=== PATIENT | male | born 1985 | race Caucasian/White ===

== ENCOUNTER → 2021-04-15 | Outpatient (CLI) | payer OTHER | END | disposition home or self-care (01) | LOC: LABMAIN 12:07 | PROVIDERS: ATTEND Physician Assistant | DX: U07.1 COVID-19 (principal) | CPT/HCPCS: 87635 ==

== ENCOUNTER 2021-04-17 10:39 | Emergency (ER) | payer OTHER ==
[2021-04-17 10:43] VITALS: RESP 18
[2021-04-17] MEDS: CLINDAMYCIN 150 MG CAP PO STA (11:40)
[2021-04-17] MEDS: dexAMETHasone ORAL SOLUTION 4 MG/ML VIAL PO STA (11:41)
--- NOTE | 2021-04-17 11:43 | ED ---
General Adult HPI - General Source: patient Mode of arrival: ambulatory Limitations: no limitations <Evan Palacio - Last Filed: 04/17/21 11:38> <Missy Fraga - Last Filed: 04/18/21 20:42> - General Chief complaint: ENT Stated complaint: Swollen Uvula Time Seen by Provider: 04/17/21 10:50 - History of Present Illness Initial comments: 36-year-old male with a past medical history of asthma presents to the emergency room for a swollen uvula. Patient started to feel sick a few days ago. He has had a sore throat and cough. Patient states that he woke up today his uvula felt swollen. Patient was able to swallow some Motrin which did help with the swelling as well. The patient tried to call his doctor but they did not see any type of illness because of the current pandemic. Patient is covid negative as of 2 days ago.Patient has no other complaints at this time including shortness of breath, chest pain, abdominal pain, nausea or vomiting, headache, or visual changes. (Evan Palacio) - Related Data Previous Rx's Medication Instructions Recorded Clindamycin [Cleocin] 300 mg PO Q8H 10 Days #60 cap 04/17/21 Allergies Allergy/AdvReac Type Severity Reaction Status Date / Time amoxicillin [From Augmentin] Allergy Swelling Verified 04/17/21 10:40 clavulanic acid Allergy Swelling Verified 04/17/21 10:40 [From Augmentin] Penicillins Allergy Swelling Verified 04/17/21 10:40 Review of Systems ROS Other: All systems not noted in ROS Statement are negative. <Evan Palacio - Last Filed: 04/17/21 11:38> ROS Other: All systems not noted in ROS Statement are negative. <Missy Fraga - Last Filed: 04/18/21 20:42> ROS Statement: Those systems with pertinent positive or pertinent negative responses have been documented in the HPI. Past Medical History Past Medical History: Asthma History of Any Multi-Drug Resistant Organisms: None Reported Past Surgical History: Adenoidectomy Past Psychological History: No Psychological Hx Reported Smoking Status: Current some day smoker Past Alcohol Use History: Occasional Past Drug Use History: None Reported <Evan Palacio - Last Filed: 04/17/21 11:38> General Exam Limitations: no limitations General appearance: alert, in no apparent distress Head exam: Present: atraumatic Eye exam: Present: normal appearance, PERRL, EOMI. Absent: scleral icterus ENT exam: Present: mucous membranes moist. Absent: normal exam, normal oropharynx (Uvula is mildly edematous. There is no peritonsillar abscess. Uvula is midline.) Neck exam: Present: normal inspection, full ROM. Absent: tenderness Respiratory exam: Present: normal lung sounds bilaterally. Absent: respiratory distress, wheezes Cardiovascular Exam: Present: regular rate, normal rhythm, normal heart sounds GI/Abdominal exam: Present: soft, normal bowel sounds. Absent: distended, tenderness <Evan Palacio - Last Filed: 04/17/21 11:38> Course Vital Signs 04/17/21 04/17/21 10:41 12:36 Temperature 97.9 F 98 F Pulse Rate 100 97 Respiratory 18 18 Rate Blood Pressure 148/67 142/70 O2 Sat by Pulse 98 99 Oximetry Medical Decision Making <Evan Palacio - Last Filed: 04/17/21 11:38> <Missy Fraga - Last Filed: 04/18/21 20:42> - Medical Decision Making Vitals are stable. Patient is well-appearing. Patient is a mildly edematous uvula but does not have any difficulty breathing. Able to swallow liquids. Patient was given a dose of Decadron. He is ALLERGIC to amoxicillin and penicillins. Therefore he was started on clindamycin. Discussed strict return parameters. He will follow-up with his doctor and return here for any worsening symptoms.. I discussed this case with attending Dr. Fraga who agrees with this assessment and treatment plan. (Evan Palacio) I was available for consultation in the emergency department. The history and physical exam were done by the midlevel provider. I was consulted for this patients care. I reviewed the case with the midlevel provider and based on their presentation of the patient, I agree with the assessment, medical decision making and plan of care as documented. Chart was dictated using [employer] dictation software. Attempts were made to correct any dictation errors however some typographical errors may persist. Patient was seen during a national state of emergency due to the Covid-19 pandemic. (Damer,Missy A) Disposition Is patient prescribed a controlled substance at d/c from ED?: No Time of Disposition: 11:42 <Evan Palacio - Last Filed: 04/17/21 11:38> <Missy Fraga - Last Filed: 04/18/21 20:42> Clinical Impression: Uvulitis Disposition: HOME SELF-CARE Condition: Good Instructions (If sedation given, give patient instructions): Uvulitis (ED) Additional Instructions: Please take antibiotic as directed. If symptoms are getting worse return to the emergency room. Otherwise follow-up with primary care. Prescriptions: Clindamycin [Cleocin] 300 mg PO Q8H 10 Days #60 cap Referrals: Norah Reid MD [REFERRING] - 1-2 days
[2021-04-17 12:37] VITALS: BP 142/70; PULSE 97; TEMP 98
== END 2021-04-17 12:29 | disposition home or self-care (01) ==
LOC: EC 10:39
DX: K12.2 Cellulitis and abscess of mouth (principal); J45.909 Unspecified asthma, uncomplicated; F17.200 Nicotine dependence, unspecified, uncomplicated; Z88.1 Allergy status to other antibiotic agents; Z88.0 Allergy status to penicillin
CPT/HCPCS: 99283; J8540

== ENCOUNTER → 2022-02-07 | Outpatient (CLI) | payer OTHER | END | disposition home or self-care (01) | LOC: LABMAIN 17:43 | PROVIDERS: ATTEND Family Medicine | DX: U07.1 COVID-19 (principal) | CPT/HCPCS: 87635 ==

== ENCOUNTER 2023-05-14 17:20 | Emergency (ER) | payer OTHER ==
[2023-05-14] MEDS ORDERED: IPRATROPIUM-ALBUTEROL 3 ML NEB INHALATION STA (17:38)
--- NOTE | 2023-05-14 17:45 | ED ---
URI HPI - General Chief Complaint: Upper Respiratory Infection Stated Complaint: Cough Time Seen by Provider: 05/14/23 17:29 Source: patient Mode of arrival: ambulatory Limitations: no limitations - History of Present Illness Initial Comments: 38-year-old male with history of asthma presenting with chief complaint of cough. Cough has been ongoing for 2 weeks. He admits to green-yellow sputum. No fevers. Breathing treatments occasionally help his symptoms. He has tried numerous [id number] cold and flu medications that have not alleviated his symptoms. He states that he only has shortness of breath after a coughing fit. He has some pain with coughing but no persistent chest pain. No palpitations or weakness. No abdominal pain nausea vomiting. - Related Data Previous Rx's Medication Instructions Recorded Clindamycin [Cleocin] 300 mg PO Q8H 10 Days #60 cap 04/17/21 Albuterol Sulfate [Albuterol 1 puff PO Q4-6H PRN #8.5 gm 05/14/23 Sulfate Hfa] Azithromycin [Zithromax Z Pack] 1 tab PO DIRECTED #6 tab 05/14/23 methylPREDNISolone Dose Pack 4 mg PO DIRECTED #1 packet 05/14/23 [Medrol Dose Pack] Allergies Allergy/AdvReac Type Severity Reaction Status Date / Time amoxicillin [From Augmentin] Allergy Swelling Verified 05/14/23 17:26 clavulanic acid Allergy Swelling Verified 05/14/23 17:26 [From Augmentin] Penicillins Allergy Swelling Verified 05/14/23 17:26 Review of Systems ROS Statement: Those systems with pertinent positive or pertinent negative responses have been documented in the HPI. ROS Other: All systems not noted in ROS Statement are negative. Past Medical History Past Medical History: Asthma History of Any Multi-Drug Resistant Organisms: None Reported Past Surgical History: Adenoidectomy Past Psychological History: No Psychological Hx Reported Smoking Status: Light tobacco smoker Past Alcohol Use History: Occasional Past Drug Use History: None Reported General Exam Limitations: no limitations General appearance: alert, in no apparent distress Head exam: Present: atraumatic, normocephalic Eye exam: Present: normal appearance, EOMI ENT exam: Present: normal exam Neck exam: Present: normal inspection. Absent: meningismus Respiratory exam: Present: normal lung sounds bilaterally. Absent: respiratory distress, wheezes, rales, rhonchi, stridor Cardiovascular Exam: Present: regular rate, normal rhythm, normal heart sounds. Absent: systolic murmur, diastolic murmur, rubs, gallop, clicks Neurological exam: Present: alert, oriented X3 Psychiatric exam: Present: normal affect, normal mood Skin exam: Present: warm, dry Course Vital Signs 05/14/23 05/14/23 05/14/23 17:22 18:02 18:12 Temperature 99.5 F Pulse Rate 108 H 104 H 108 H Respiratory 20 Rate Blood Pressure 113/80 O2 Sat by Pulse 97 Oximetry 05/14/23 05/14/23 18:14 19:06 Temperature 98.9 F Pulse Rate 103 H Respiratory 18 18 Rate Blood Pressure 128/75 O2 Sat by Pulse 96 Oximetry Medical Decision Making - Medical Decision Making Was pt. sent in by a medical professional or institution ([facility] Sosa, HEAD CORRECTION OFFICER, urgent care, hospital, or jail...) When possible be specific @ -No Did you speak to anyone other than the patient for history (EMS, parent, family, police, friend...)? What history was obtained from this source @ -No Did you review nursing and triage notes (agree or disagree)? Why? @ -I reviewed and agree with nursing and triage notes Were old charts reviewed (outside hosp., previous admission, EMS record, old EKG, old radiological studies, urgent care reports/EKG's, jail records)? Report findings @ -No old charts were reviewed Differential Diagnosis (chest pain, altered mental status, abdominal pain women, abdominal pain men, vaginal bleeding, weakness, fever, dyspnea, syncope, headache, dizziness, GI bleed, back pain, seizure, CVA, palpatations, mental health, musculoskeletal)? @ -Differential includes asthma exacerbation, influenza, RSV, COVID, pneumonia, bronchitis, this is not an all-inclusive list EKG interpreted by me (3pts min.). @ -As above X-rays interpreted by me (1pt min.). @ -Chest x-ray shows no acute process CT interpreted by me (1pt min.). @ -None done U/S interpreted by me (1pt. min.). @ -None done What testing was considered but not performed or refused? (CT, X-rays, U/S, labs)? Why? @ -None What meds were considered but not given or refused? Why? @ -None Did you discuss the management of the patient with other professionals (professionals i.e. DrEsau, PA, HEAD CORRECTION OFFICER, lab, RT, psych nurse, protective services social worker, appeals writer, teacher, environmental conservation officer, manager rn case)? Give summary @ -No Was smoking cessation discussed for >3mins.? @ -No Was critical care preformed (if so, how long)? @ -No Were there social determinants of health that impacted care today? How? (Homele ssness, low income, unemployed, alcoholism, drug addiction, transportation, low edu. Level, literacy, decrease access to med. care, long term, rehab)? @ -No Was there de-escalation of care discussed even if they declined (Discuss DNR or withdrawal of care, Hospice)? DNR status @ -No What co-morbidities impacted this encounter? (DM, HTN, Smoking, COPD, CAD, Cancer, CVA, ARF, Chemo, Hep., AIDS, mental health diagnosis, sleep apnea, morbid obesity)? @ -None Was patient admitted / discharged? Hospital course, mention meds given and route, prescriptions, significant lab abnormalities, going to OR and other pertinent info. @ -38-year-old male presenting with chief complaint of persistent cough. History of asthma. On physical examination heart and lungs are clear to auscultation. Patient is negative for influenza, RSV, and COVID. Chest x-ray shows no acute process. Persistent productive cough is likely bronchitis. Patient will be treated with albuterol inhaler, Medrol Dosepak, and azithr omycin. Discharged home. Follow-up with PCP. Report back to ER with any new or worsening symptoms. Discussed return parameters and answered all questions. Patient conveyed verbal understanding and agreed to the plan. I discussed this case in detail with my attending Dr. Dawson Undiagnosed new problem with uncertain prognosis? @ -No Drug Therapy requiring intensive monitoring for toxicity (Heparin, Nitro, Insulin, Cardizem)? @ -No Were any procedures done? @ -No Diagnosis/symptom? @ -Bronchitis Acute, or Chronic, or Acute on Chronic? @ -Acute Uncomplicated (without systemic symptoms) or Complicated (systemic symptoms)? @ -Uncomplicated Side effects of treatment? @ -No Exacerbation, Progression, or Severe Exacerbation? @ -No Poses a threat to life or bodily function? How? (Chest pain, [place], CA, pneumonia, PE, COPD, DKA, ARF, appy, cholecystitis, CVA, Diverticulitis, Homicidal, Suicidal, threat to staff... and all critical care pts) @ -No - Lab Data Lab Results 05/14/23 Range/Units 17:58 Influenza Type A (PCR) Not Detected (Not Detectd) Influenza Type B (PCR) Not Detected (Not Detectd) RSV (PCR) Not Detected (Not Detectd) SARS-CoV-2 (PCR) Not Detected (Not Detectd) Disposition Clinical Impression: Bronchitis Disposition: HOME SELF-CARE Condition: Good Instructions (If sedation given, give patient instructions): Acute Bronchitis (ED) Additional Instructions: Follow-up with PCP. Report back to ER with any new or worsening symptoms. Take medication as prescribed. Prescriptions: Albuterol Sulfate [Albuterol Sulfate Hfa] 1 puff PO Q4-6H PRN #8.5 gm PRN Reason: Shortness Of Breath methylPREDNISolone Dose Pack [Medrol Dose Pack] 4 mg PO DIRECTED #1 packet Azithromycin [Zithromax Z Pack] 1 tab PO DIRECTED #6 tab Is patient prescribed a controlled substance at d/c from ED?: No Referrals: None,Stated [Primary Care Provider] - 1-2 days Time of Disposition: 19:28
[2023-05-14 18:28] VITALS: RESP 18
--- NOTE | 2023-05-14 18:41 | XR ---
EXAMINATION TYPE: XR chest 2V DATE OF EXAM: 05/14/2023 COMPARISON: None INDICATION: Productive cough TECHNIQUE: Frontal and lateral views of the chest are obtained. FINDINGS: The heart size is normal. The pulmonary vasculature is normal. The lungs are clear. IMPRESSION: 1. No acute pulmonary process.
[2023-05-14 19:15] VITALS: BP 128/75; PULSE 103; TEMP 98.9
== END 2023-05-14 19:35 | disposition home or self-care (01) ==
LOC: EC 17:20
DX: J40 Bronchitis, not specified as acute or chronic (principal); F17.200 Nicotine dependence, unspecified, uncomplicated; Z20.822 Contact with and (suspected) exposure to COVID-19; Z88.0 Allergy status to penicillin; Z88.1 Allergy status to other antibiotic agents
CPT/HCPCS: 71046; 87636; 94640; 99283